=== PATIENT | male | born 1950 | race Caucasian/White ===

== ENCOUNTER → 2017-06-07 | Outpatient (CLI) | payer OTHER ==
[~2017-06-07] VITALS: Ht 177.8 cm; Wt 83.9 kg
[~2017-06-07] MED LIST: 5-HTP50 MG PO; ALEVE220 MG PO; COQ-10100 MG PO; CYMBALTA60 MG PO; LIPITOR 20 MG T20 M1 PO; MELATONIN1 MG PO; NEPHROCAPS SOFT1 CAP PO; OMEPRAZOLE20 M2 PO; PROBIOTIC1 EAC1 PO; TRAMADOL 50 MG50 MG PO; UNICOMPLEX M TA1 TA1 PO; ZANTAC 150MG T150 MG PO
[2017-06-07 14:43] VITALS: BP 142/85
== END | disposition home or self-care (01) ==
LOC: PAIN 12:16
DX: M54.16 Radiculopathy, lumbar region (principal); Z88.8 Allergy status to other drugs, medicaments and biological substances; K22.70 Barrett's esophagus without dysplasia; M17.10 Unilateral primary osteoarthritis, unspecified knee; E78.5 Hyperlipidemia, unspecified; Z98.890 Other specified postprocedural states

== ENCOUNTER → 2017-07-12 | Outpatient (CLI) | payer OTHER ==
[~2017-07-12] VITALS: Ht 177.8 cm; Wt 82.6 kg
--- NOTE | ~2017-07-12 | HPC ---
[facility] [place] [address] PAIN MANAGEMENT CONSULTATION Name: ROSA DILL Room #: REG BRANDEE Andres#: [id number] Admission: 07/12/17 Attend Phys: Lobo Church MD Discharge: Date of : 52 Report #: [id number] THIS REPORT FOR: //name// CC: Lobo Esquivel DATE OF SERVICE: 07/12/2017 Followup visit for lumbar radiculopathy, left lower extremity. The patient returns to pain clinic today for an epidural steroid injection. I last saw him on 06/07/2017. We talked about treatments including conservative management with medication and exercise. We discussed epidural injections as a possible option. He is anxious to go forward and see if he gets relief. We reviewed his MRI, which shows multilevel degenerative changes. There is scoliosis as well as degenerative change noted at L4-L5, prominent on the right; right foraminal stenosis also at L3-L4. Levoscoliosis is present. Osteophytosis is seen throughout. PHYSICAL EXAMINATION: Pleasant, outgoing gentleman. He moves from sitting to standing position and ambulates with mild antalgic features. Scoliosis of the spine is noted. He has pain with forward flexion and extension. Straight leg raising reproduces some pain into the left leg. IMPRESSION: Left lumbar radiculopathy related to diffuse degenerative changes of the lumbar spine with levoscoliosis. PROCEDURE: Lumbar epidural steroid injection L3-L4, left paramedian under fluoroscopic guidance. PROCEDURE REPORT: He was taken to fluoroscopic suite for treatment, placed prone, skin prepped with ChloraPrep and skin was anesthetized over the L3-L4 interspace ____ the apex of his levoscoliosis. A 20-gauge Tuohy epidural needle was advanced in the epidural space with loss of resistance technique. There was no blood or CSF aspirated. 1 mL of Omnipaque injected. Good spread of dye observed in the epidural space along the lateral recess on the left. This was then followed by 3 mL of 0.5% lidocaine mixed with 80 mg triamcinolone. He tolerated the procedure well and was observed for 45 minutes and discharged. Followup visit planned in the pain clinic as needed. We will not go forward [address] [address] PAIN MANAGEMENT CONSULTATION Name: ROAS DILL Room #: REG [facility].#: [id number] Admission: 07/12/17 Attend Phys: Lobo Church MD Discharge: Date of : 52 Report #: [id number] with the series of injections at this time. We will see how he does and follow up as needed. By: [id number] Lobo Church MD /nt
[2017-07-12 13:12] VITALS: BP 142/91
== END | disposition home or self-care (01) ==
LOC: PAIN 06-28 07:46
DX: M51.36 Other intervertebral disc degeneration, lumbar region (principal); M41.86 Other forms of scoliosis, lumbar region; G89.29 Other chronic pain; Z98.890 Other specified postprocedural states; Z88.8 Allergy status to other drugs, medicaments and biological substances